=== PATIENT | female | born 1950 | race Hispanic/Latino ===

== ENCOUNTER 2017-07-31 06:42 | Day surgery (SDC) | payer MEDICARE ==
[2017-07-27 10:44] VITALS: BMI 29.0
[2017-07-31] MEDS ORDERED: Etomidate 20 mg/10ml Inj IV ONE ×2 (07:42→08:37)
[2017-07-31] MEDS ORDERED: Propofol 10 mg/ml Inj (20 ML) ONE (07:42)
[2017-07-31] MEDS ORDERED: Lactated Ringer's 1,000 ML IV SCH (08:00)
[2017-07-31] MEDS ORDERED: ePHEDrine 50 mg/ml Inj ONE (08:25)
[2017-07-31 10:11] VITALS: BP 163/83; PULSE 74; RESP 18; TEMP 98.2; O2SAT 98
[2017-07-31 11:21] LABS: BLOOD UREA NITROGEN 10 mg/dL (7-21); CALCIUM 9.5 mg/dL (8.4-10.5); GFR AFRICAN-AMERICAN > 60; GFR NON-AFRICAN AMERICAN > 60
== END 2017-07-31 11:14 | disposition home or self-care (01) ==
LOC: ENDO 06:42
PROVIDERS: ATTEND Internal Medicine Gastroenterology
DX: C18.7 Malignant neoplasm of sigmoid colon (principal); D12.2 Benign neoplasm of ascending colon; D12.0 Benign neoplasm of cecum; D12.3 Benign neoplasm of transverse colon; K63.3 Ulcer of intestine; K57.30 Diverticulosis of large intestine without perforation or abscess without bleeding; K64.0 First degree hemorrhoids; K62.5 Hemorrhage of anus and rectum; Z80.0 Family history of malignant neoplasm of digestive organs
CPT/HCPCS: 36415; 45380; 45381; 45385; 80048; 88305; J2001; J2704; J7040; J7120